=== PATIENT | male | born 1960 | race Caucasian/White ===

== ENCOUNTER 2016-08-07 14:05 | Emergency (ER) | payer OTHER ==
[~2016-08-07] VITALS: Ht 175.3 cm; Wt 83.0 kg
[~2016-08-07 14:05] MED LIST: Z.0.NO CURRENT MEDS
[2016-08-07 14:08] VITALS: BP 177/126; PULSE 127; RESP 20; TEMP 99.4; O2SAT 94
[2016-08-07] MEDS ORDERED: LISI10TA3 PO (14:39)
--- NOTE | 2016-08-07 14:41 | PD ---
HPI Chief Complaint: Hypertension Time Seen by Provider: 14:17 Travel History International Travel<30 days: No Contact w/Intl Traveler<30days: No Traveled to known affect area: No History of Present Illness HPI Patient is a 56-year-old male presents emergency department for blood pressure medication issues. Patient states that he usually takes full tablet of his lisinopril and didn't think anything of it, over the past 45 days he's been taking a full tablet of lisinopril 20 mg thinking that it was lisinopril 10 mg. When he went to file for refill he noticed that he had mistakenly taken to much of his medicine over the past 45 days. Patient called the [facility] and informed him of his concerns and stated that he was going to stop his blood pressure medicine for a few days and then restart. Patient then had an episode yesterday where a dispute with someone he is buying a trailer from caused him to have significant stress and he was unable to sleep last night. He woke up this morning feeling very concerned about his blood pressure and presented to the emergency department for evaluation. He denies any chest pain shortness of breath abdominal pain nausea vomiting diarrhea blood in the stool blood in the urine. PFSH Past Medical History Autoimmune Disease: No Anxiety: Yes Cancer: No Cardiovascular Problems: Yes (HTN) High Cholesterol: Yes Chemotherapy: No Chest Pain: Yes Diabetes: No Gastrointestinal Disorders: No Genitourinary: No Heparin Induced Thrombocytopen: No Hypertension: Yes Immune Disorder: No Implanted Vascular Access Dvce: No Musculoskeletal: Yes Neurologic: No Reproductive: No Respiratory: No Pancreatitis: Yes Radiation Therapy: No Thyroid Disease: No Past Surgical History Other Surgery: No Social History Alcohol Use: No Tobacco Use: Yes (1PPD) Substance Use: No Allergies-Medications (Allergen,Severity, Reaction): Coded Allergies: No Known Allergies (Unverified , 08/07/16) Reported Meds & Prescriptions Reported Meds & Active Scripts Active Reported Lisinopril 10 Mg Tab 10 Mg PO DAILY Review of Systems Except as stated in HPI: all other systems reviewed are Neg Physical Exam Narrative GENERAL: [Well-developed well-nourished, appears fairly anxious SKIN: Warm and dry. HEAD: Atraumatic. Normocephalic. EYES: Pupils equal and round. No scleral icterus. No injection or drainage. ENT: No nasal bleeding or discharge. Mucous membranes pink and moist. NECK: Trachea midline. No JVD. CARDIOVASCULAR: Tachycardic with regular rhythm. No murmur appreciated. 2+ bilateral equal pulses in all 4 extremities RESPIRATORY: No accessory muscle use. Clear to auscultation. Breath sounds equal bilaterally. GASTROINTESTINAL: Abdomen soft, non-tender, nondistended. Hepatic and splenic margins not palpable. MUSCULOSKELETAL: No obvious deformities. No clubbing. No cyanosis. No edema. NEUROLOGICAL: Awake and alert. No obvious cranial nerve deficits. Motor grossly within normal limits. Normal speech. PSYCHIATRIC: Appropriate mood and anxious affect; insight and judgment normal. Data Data Last Documented VS Vital Signs Date Time Temp Pulse Resp B/P Pulse Ox O2 Delivery O2 Flow Rate FiO2 08/07/16 18:37 101 16 147/79 98 08/07/16 17:30 Room Air 08/07/16 14:08 99.4 Orders Electrocardiogram (08/07/16 14:33) Basic Metabolic Panel (Bmp) (08/07/16 14:33) Complete Blood Count With Diff (08/07/16 14:33) Magnesium (Mg) (08/07/16 14:33) Prothrombin Time / Inr (Pt) (08/07/16 14:33) Act Partial Throm Time (Ptt) (08/07/16 14:33) Troponin I (08/07/16 14:33) Chest, Single Ap (08/07/16 14:33) Ecg Monitoring (08/07/16 14:33) Bilateral Bp Monitoring (08/07/16 14:33) Iv Access Insert/Monitor (08/07/16 14:33) Oximetry (08/07/16 14:33) Oxygen Administration (08/07/16 14:33) Sodium Chloride 0.9% Flush (Ns Flush) (08/07/16 14:45) Lorazepam Inj (Ativan Inj) (08/07/16 14:45) Sodium Chlor 0.9% 1000 Ml Inj (Ns 1000 M (08/07/16 15:45) Sodium Chlor 0.9% 1000 Ml Inj (Ns 1000 M (08/07/16 15:45) Labs Laboratory Tests Test 08/07/16 14:55 White Blood Count 16.6 TH/MM3 Red Blood Count 5.73 MIL/MM3 Hemoglobin 17.3 GM/DL Hematocrit 50.6 % Mean Corpuscular Volume 88.3 FL Mean Corpuscular Hemoglobin 30.2 PG Mean Corpuscular Hemoglobin 34.2 % Concent Red Cell Distribution Width 12.4 % Platelet Count 312 TH/MM3 Mean Platelet Volume 8.1 FL Neutrophils (%) (Auto) 85.1 % Lymphocytes (%) (Auto) 8.2 % Monocytes (%) (Auto) 5.0 % Eosinophils (%) (Auto) 0.0 % Basophils (%) (Auto) 1.7 % Neutrophils # (Auto) 14.1 TH/MM3 Lymphocytes # (Auto) 1.4 TH/MM3 Monocytes # (Auto) 0.8 TH/MM3 Eosinophils # (Auto) 0.0 TH/MM3 Basophils # (Auto) 0.3 TH/MM3 CBC Comment DIFF FINAL Differential Comment Prothrombin Time 10.3 SEC Prothromb Time International 0.9 RATIO Ratio Activated Partial 31.7 SEC Thromboplast Time Sodium Level 139 MEQ/L Potassium Level 3.8 MEQ/L Chloride Level 104 MEQ/L Carbon Dioxide Level 21.5 MEQ/L Anion Gap 14 MEQ/L Blood Urea Nitrogen 12 MG/DL Creatinine 0.83 MG/DL Estimat Glomerular Filtration 96 ML/MIN Rate Random Glucose 91 MG/DL Calcium Level 9.2 MG/DL Magnesium Level 2.0 MG/DL Troponin I 0.02 NG/ML [facility] Medical Decision Making Medical Screen Exam Complete: Yes Emergency Medical Condition: Yes Interpretation(s) EKG shows sinus tachycardia at a rate of 114, intervals otherwise within normal limits. Normal axis normal R-wave progression concerning ST T changes. This is normal EKG except for rate. Differential Diagnosis Dehydration, anxiety, tachycardia, substance use, acute kidney injury, medication reaction, stress reaction. Narrative Course Patient was roomed in emergency department, given Ativan as well as 2 L normal saline. His heart rate is normalizing and he is feeling better. Blood pressure is elevated days he's not had his lisinopril and a day and a half. Labs show no evidence of acute kidney injury. He does have elevated hemoglobin consistent with dehydration. When asked why the patient is dehydrated he states that he is taking care of many kids at home and doesn't have time to really take care of himself. He is feeling better vital signs are normalizing. He wishes to go home. This point he is stable for discharge. Discussed the need follow-up with his primary care physician at the [facility] and return to ED criteria. He can return to his lisinopril at previous dosing starting tomorrow. Diagnosis Primary Impression: Dehydration Disposition: 01 DISCHARGE HOME Condition: Stable Kody Morejon MD Aug 07, 2016 14:41
[2016-08-07] MEDS ORDERED: LORazepam 2 MG/ML VIAL IV PUSH ONE (14:45)
--- NOTE | 2016-08-07 15:01 | RADHPO ---
EXAM DATE/TIME: 08/07/2016 14:40 [facility] COMPARISON: CHEST SINGLE AP, November 19, 2012, 14:29. INDICATIONS : Patient states stopped taking blood pressure medicine yesterday, and complains of heart palpitations today. History of right lung nodule, but states he did not follow up on the results with the [facility]. MEDICAL HISTORY : Hypertension. SURGICAL HISTORY : None. ENCOUNTER: Initial ACUITY: 1 day PAIN SCORE: 3/10 LOCATION: Bilateral chest FINDINGS: A single view of the chest demonstrates the lungs to be symmetrically aerated without evidence of mas s, infiltrate or effusion. The cardiomediastinal contours are unremarkable. Osseous structures are intact. CONCLUSION: Normal examination. Jason Parada MD on August 07, 2016 at 14:59 Board Certified Radiologist. This report was verified electronically.
[2016-08-07] MEDS: SODIUM CHLORIDE 0.9% FLUSH 5 ML FLUSH IVF PRN ×3 (15:02→16:53)
[2016-08-07 15:07] VITALS: BP_SYST 153; BP_SYST 172; BP_DIAS 104; BP_DIAS 97; PULSE 112
[2016-08-07 15:09] VITALS: RESP 16; O2SAT 97
[2016-08-07 15:16] LABS: AUTOMATED NEUTROPHIL # 14.1 TH/MM3 (1.8-7.7); BASOPHIL # 0.3 TH/MM3 (0-0.2); BASOPHIL % 1.7 % (0.0-2.0); HEMATOCRIT 50.6 % (39.0-51.0); LYMPH % 8.2 % (9.0-44.0); LYMPHOCYTE # 1.4 TH/MM3 (1.0-4.8); MEAN CELL VOLUME 88.3 FL (80.0-100.0); MEAN CORPUSCULAR HEMOGLOBIN 30.2 PG (27.0-34.0); MEAN CORPUSCULAR HGB CONC 34.2 % (32.0-36.0); NEUT % 85.1 % (16.0-70.0); PLATELET COUNT 312 TH/MM3 (150-450); RED BLOOD COUNT 5.73 MIL/MM3 (4.50-5.90); RED CELL DISTRIBUTION WIDTH 12.4 % (11.6-17.2); WHITE BLOOD COUNT 16.6 TH/MM3 (4.0-11.0)
[2016-08-07 15:17] LABS: HEMO FLAGS DIFF FINAL
[2016-08-07 15:26] LABS: POTASSIUM 3.8 MEQ/L (3.5-5.1)
[2016-08-07 15:29] LABS: BICARBONATE 21.5 MEQ/L (21.0-32.0)
[2016-08-07 15:30] LABS: APTT (PATIENT) 31.7 SEC (24.3-30.1); INTERNATIONAL NORMALIZED RATIO 0.9 RATIO; PROTHROMBIN TIME - PATIENT 10.3 SEC (9.8-11.6)
[2016-08-07] MEDS ORDERED: SODIUM CHLOR 0.9% 1000 ML INJ 1,000 ML IV ONE ×2 (15:45)
[2016-08-07 16:00] VITALS: BP 145/84; PULSE 108; RESP 16; O2SAT 97
[2016-08-07 17:30] VITALS: BP 150/74; PULSE 103; RESP 16; O2SAT 98
[2016-08-07 18:37] VITALS: BP 147/79
--- NOTE | 2016-08-08 20:18 | EKG ---
Date Performed: 08/07/2016 Time Performed: 14:41:28 PTAGE: 56 years EKG: Sinus tachycardia ST junctional depression is nonspecific Borderline ECG PREVIOUS TRACING : 11/19/2012 13.58 Compared to prior tracing no significant change DOCTOR: Leanne Khanna Interpretating Date/Time 08/08/2016 20:17:04
== END 2016-08-07 18:44 | disposition home or self-care (01) ==
LOC: PHED 14:05
DX: E86.0 Dehydration (principal); I10 Essential (primary) hypertension; E78.00 Pure hypercholesterolemia, unspecified; F17.210 Nicotine dependence, cigarettes, uncomplicated; R00.0 Tachycardia, unspecified
CPT/HCPCS: 71010; 80048; 83735; 84484; 85025; 85610; 85730; 93005; 96361; 96374; 99284; J2060; J7030